=== PATIENT | female | born 1960 | race Caucasian/White ===

== ENCOUNTER 2019-09-16 06:06 | Day surgery (SDC) | payer OTHER ==
[2019-09-16] VITALS (9 sets, daily range): BP systolic 106–131; BP diastolic 71–78
[~2019-09-16] VITALS: Ht 165.1 cm; Wt 92.5 kg
[~2019-09-16 06:06] MED LIST: MULT-955 PO; famotidine 10mg tablet PO ONE; ringers solution, lacted 1,000 ML IV SCH
[2019-09-16] MEDS ORDERED: LIDOcaine 1% (10mg/ml) 2ml vial ONE (06:19)
[2019-09-16] MEDS ORDERED: oxymetazoline 15 ML nasal spray NS ONE (06:47)
[2019-09-16] MEDS ORDERED: rocuronium 10mg/ml inj IV ONE (08:02)
[2019-09-16] MEDS ORDERED: propofol 10mg/ml 20ml vial IV ONE (08:02)
[2019-09-16] MEDS ORDERED: sevoflurane 250ml liquid IH ONE (08:02)
[2019-09-16] MEDS ORDERED: fentaNYL/PF 50MCG/1 ML 2ML syringe ONE (08:03)
[2019-09-16] MEDS ORDERED: LIDOcaine 2% (20mg/ml) 5ml vial ONE (08:04)
[2019-09-16] MEDS ORDERED: midazolam 2 mg/2 ml injection ONE (08:04)
[2019-09-16] MEDS ORDERED: morphine 4 MG/ML inj SYRINge IV PRN ×2 (08:10)
[2019-09-16] MEDS ORDERED: ringers solution, lacted 1,000 ML IV SCH (08:10)
[2019-09-16] MEDS ORDERED: proCHLORperazine 10 MG/2 ml inj IV PRN (08:10)
[2019-09-16] MEDS ORDERED: ondansetron/PF 4mg/2ml inj IV PRN (08:10)
[2019-09-16] MEDS ORDERED: meperidine/PF 25mg/ml syringe IV PRN ×3 (08:10)
[2019-09-16] MEDS ORDERED: epiNEPHrine 1 mg/ml inj ONE (08:29)
[2019-09-16] MEDS ORDERED: BUPIVAcaine 0.5% inj/PF 30 ML ONE (08:29)
[2019-09-16] MEDS ORDERED: neostigmine methylsulfate 1 MG/ML 10ml vial ONE (08:47)
[2019-09-16] MEDS ORDERED: glycopyrrolate 0.2mg/ml inj ONE (08:47)
[2019-09-16] MEDS ORDERED: ondansetron/PF 4mg/2ml inj ONE (08:52)
[2019-09-16] MEDS ORDERED: dexamethasone sod phosphate 4mg/ml inj. ONE (08:53)
--- NOTE | 2019-09-16 09:00 | NUR ---
Received from OR via BED, accompanied by Anesthesiologist DR DIAZ- and report given by Anesthesiolgist. PATIENT A&OX4, DENIES PAIN, V/S WNL, NEUROVASCULAR CHECKS INTACT, 20G PIV RUE, SCD ON,
--- NOTE | 2019-09-16 10:10 | NUR ---
PATIENT A&OX4, DENIES PAIN, V/S WNL, NEUROVASCULAR CHECKS INTACT, 20G PIV RUE D/C. SCD OFF. I HAVE REVIEWED D/C INSTRUCTIONS WITH PATIENT AND FAMILY AND THEY HAVE VERBALIZED UNDERSTANDING. PATIENT D/C HOME WITH ALL BELONGINGS AND FAMILY GAVE TRANSPORT HOME.
== END 2019-09-16 10:10 | disposition home or self-care (01) ==
LOC: PAS 06:06 → EDUNIT# 10:45
PROVIDERS: ATTEND Otolaryngology
DX: D49.0 Neoplasm of unspecified behavior of digestive system (principal); D18.09 Hemangioma of other sites; M19.90 Unspecified osteoarthritis, unspecified site; E66.9 Obesity, unspecified; Z68.33 Body mass index [BMI] 33.0-33.9, adult; Z87.891 Personal history of nicotine dependence; Z90.49 Acquired absence of other specified parts of digestive tract; Z98.890 Other specified postprocedural states; Z88.5 Allergy status to narcotic agent; Z79.899 Other long term (current) drug therapy; Z72.89 Other problems related to lifestyle
CPT/HCPCS: 42890; 82948; 93005; J0171; J1100; J2001; J2250; J2405; J2704; J2710; J3010; J7120; A4618; A6258; A7000; J3490